=== PATIENT | female | born 1990 | race Caucasian/White ===

== ENCOUNTER 2018-11-19 16:14 | Inpatient (IN) | payer OTHER ==
[2018-11-19 19:46] VITALS: BMI 37.0
--- NOTE | 2018-11-19 20:46 | HP ---
CIWA Score - Admission Criteria [facility]ASAS Guidelines: Admission for Medically Managed Detox: Requires at least one of the followin. CIWA greater than 12 2. Seizures within the past 24 hours 3. Delirium tremens within the past 24 hours 4. Hallucinations within the past 24 hours 5. Acute intervention needed for co occurring medical disorder 6. Acute intervention needed for co occurring psychiatric disorder 7. Severe withdrawal that cannot be handled at a lower level of care (continued vomiting, continued diarrhea, abnormal vital signs) requiring intravenous medication and/or fluids 8. Admission ROS BHS - HPI Chief Complaint: Seeking admission to Rehab. Allergies/Adverse Reactions: Allergies Allergy/AdvReac Type Severity Reaction Status Date / Time No Known Allergies Allergy Verified 11/19/18 20:40 History of Present Illness: 28 years old female is seeking admission to Rehab. Patient was discharged from detox at [facility]. She has medical history of Hep C, hypothyroidism, fibromyalgia, anxiety and depression. She denies suicide attempt and suicidal ideation at this time. Patient reports that she is on Methadone 140mg tablet oral daily. Dose is yet to be confirmed by the nurse. Exam Limitations: No Limitations - Ebola screening Have you traveled outside of the country in the last 21 days: No Have you had contact with anyone from an Ebola affected area: No Have you been sick,other than usual withdrawal symptoms: No - Review of Systems Constitutional: No Symptoms Reported EENT: reports: No Symptoms Reported Respiratory: reports: No Symptoms reported Cardiac: reports: No Symptoms Reported GI: reports: No Symptoms Reported : reports: No Symptoms Reported Musculoskeletal: reports: No Symptoms Reported Integumentary: reports: No Symptoms Reported Neuro: reports: No Symptoms reported Endocrine: reports: No Symptoms Reported Hematology: reports: No Symptoms Reported Psychiatric: reports: No Sypmtoms Reported, Mood/Affect Appropiate, Orientated x3 Other Systems: Reviewed and Negative Patient History - Patient Medical History Hx Anemia: No Hx Asthma: No Hx Chronic Obstructive Pulmonary Disease (COPD): No Hx Cancer: No Hx Cardiac Disorders: No Hx Congestive Heart Failure: No Hx Hypertension: No Hx Hypercholesterolemia: No Hx Pacemaker: No HX Cerebrovascular Accident: No Hx Seizures: No Hx Dementia: No Hx Diabetes: No Hx Gastrointestinal Disorders: No Hx Liver Disease: Yes (Hep C) Hx Genitourinary Disorders: No Hx Sexually Transmitted Disorders: No Hx Renal Disease (ESRD): No Hx Thyroid Disease: Yes (Hypothyroidism) Hx Human Immunodeficiency Virus (HIV): No (Negative 2019) Hx Hepatitis C: Yes (Not treated) Hx Depression: Yes (Wellbutrim) Hx Suicide Attempt: No (Denies suicide attempt and suicidal ideation at this time) Hx Bipolar Disorder: No Hx Schizophrenia: No Other Medical History: Anxiety - Gabapentin - Patient Surgical History Past Surgical History: Yes Other Surgical History: Gall bladder removal 2014 - PPD History Previous Implant?: Yes Documented Results: Negative w/o proof Implanted On Prior R Admission?: No PPD to be Administered?: Yes - Reproductive History Patient is a Female of Child Bearing Age (11 -55 yrs old): Yes LMP comment: A YEAR AGO Patient : No - Smoking Cessation Smoking history: Current every day smoker Have you smoked in the past 12 months: Yes Aproximately how many cigarettes per day: 10 Hx Chewing Tobacco Use: No Initiated information on smoking cessation: Yes 'Breaking Loose' booklet given: 11/19/18 - Substance & Tx. History Hx Alcohol Use: No Hx Substance Use: Yes Substance Use Type: Opiates, Tranquilizers Hx Substance Use Treatment: Yes ([facility]) - Substances Abused Alprazolam (Xanax) Route: Oral Frequency: Daily Amount used: 10MG DAILY Age of first use: 13 Date of Last Use: 11/12/18 Family Disease History - Family Disease History Family History: Denies Admission Physical Exam S - Vital Signs Vital Signs: Vital Signs - 24 hr 11/19/18 19:38 Temperature 98.9 F Pulse Rate 97 H Respiratory 18 Rate Blood Pressure 116/72 - Physical General Appearance: Yes: Within Normal Limits HEENTM: Yes: Within Normal Limits, Normocephalic, Normal Voice, PAPO Respiratory: Yes: Lungs Clear, Normal Breath Sounds, No Respiratory Distress Neck: Yes: Supple Breast: Yes: Breast Exam Deferred Cardiology: Yes: Regular Rhythm, Regular Rate Abdominal: Yes: Normal Bowel Sounds Genitourinary: Yes: Within Normal Limits Back: Yes: Normal Inspection Musculoskeletal: Yes: Within Normal Limits Extremities: Yes: Within Normal Limits Neurological: Yes: claims technician II-XII NML intact, Alert, Normal Mood/Affect Integumentary: Yes: Warm Lymphatic: Yes: Within Normal Limits - Diagnostic (1) Benzodiazepine dependence Current Visit: Yes Status: Chronic (2) Methadone maintenance therapy patient Current Visit: Yes Status: Chronic (3) Hep C w/o coma, chronic Current Visit: Yes Status: Acute (4) Depression Current Visit: Yes Status: Chronic Qualifiers: Depression Type: unspecified Qualified Code(s): F32.9 - Major depressive disorder, single episode, unspecified (5) Anxiety Current Visit: Yes Status: Chronic (6) Hypothyroidism Current Visit: Yes Status: Chronic Qualifiers: Hypothyroidism type: subclinical iodine-deficiency Qualified Code(s): E02 - Subclinical iodine-deficiency hypothyroidism (7) Fibromyalgia Current Visit: Yes Status: Chronic Cleared for Admission [facility] - Detox or Rehab [facility] Level of Care: Observation Bed Claeared for Rehab Admission: Yes [facility] Breath Alcohol Content Breath Alcohol Content: 0 Urine Pregancy Test - Result Urine Test Results: Negative- NO Line Present Urine Drug Screen - Results Drug Screen Negative: No Urine Drug Screen Results: BZO-Benzodiazepines, MTD-Methadone Inpatient Rehab Admission - Rehab Decision to Admit Inpatient rehab admission?: Yes - Initial Determination Are CD services needed?: Yes Free of communicable disease: Yes Not in need of hospitalization: Yes - Rehab Admission Criteria Previous failed treatment: Yes Poor recovery environment: Yes Comorbidities: Yes Lacks judgement: No Patient is meeting Inpatient Rehab admission criteria:: Yes
[2018-11-19] MEDS ORDERED: MENTHOL/PHENOL 1 EACH UD MM PRN (20:59)
[2018-11-19] MEDS ORDERED: MAG HYDROX/AL HYDROX/SIMETH 30 ML UNIT-DOSE CUP PO PRN (20:59)
[2018-11-19] MEDS ORDERED: MAGNESIUM CITRATE 300 ML BOTTLE PO PRN (20:59)
[2018-11-19] MEDS ORDERED: P-EPHED 60MG/TRIPROLIDI 2.5MG TABLET PO PRN (20:59)
[2018-11-19] MEDS ORDERED: LOPERAMIDE HCL 2 MG CAPSULE PO PRN (20:59)
[2018-11-19] MEDS ORDERED: ACETAMINOPHEN 325 MG TABLET (FP) PO PRN (20:59)
[2018-11-19] MEDS ORDERED: guaiFENesin/D-METHORPHAN HB 10 ML UNIT-DOSE CUPS PO PRN (20:59)
[2018-11-20] MEDS: THIAMINE HCL 100 MG TABLET (FP) PO SCH ×2 (02:20→21:38)
[2018-11-20] MEDS ORDERED: NAPHAZOLINE/PHENIRAMINE OPHTHALMIC 15 ML BOTTLE OU PRN (06:37)
[2018-11-20] MEDS: LEVOTHYROXINE NA 100 MCG TABLET (FP) PO SCH (07:16)
[2018-11-20] MEDS ORDERED: METHADONE HCL 10 MG TABLET PO ONE (09:39)
[2018-11-20] MEDS ORDERED: METHADONE 120 MG, METHADONE 20 MG PO ONE (10:00)
[2018-11-20] MEDS: NICOTINE 14 MG/24 HOURS TOPICAL PATCH TD SCH (10:02)
[2018-11-20] MEDS: PRENATAL VITAMINS W/ FOLIC ACID TABLET (FP) PO SCH (10:02)
[2018-11-20] MEDS ORDERED: METHADONE HCL 10 MG TABLET ONE (10:43)
[2018-11-20] MEDS ORDERED: METHADONE HCL 40 MG DISPERSABLE TABLET ONE (10:43)
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
--- NOTE | 2018-11-20 18:13 | PN ---
[facility] Progress Note Note: Psychiatry Attending's on-call note : Called to enter orders for medications. Direct admission from the community. 28 y/o female with MDD and Anxiety Disorder. Requesting orders for : gabapentin 800 mg po qid remeron 30 mg po hs wellbutrin XL 300 mg am + 150 mg po hs (?) Chart reviewed. Dr Garces's consult note : appreciated. Met with the patient.History taken. Ms Bland was discharged on 11/19/18 from [facility]. Discharge summary seen. Home medications on discharge : lyrica 200 mg po bid wellbutrin XL 100 mg po q 12 hours synthroid 100 mcg po daily methadone 140 mg po daily Patient gave MD permission to contact [facility]. Done. Spoke to pharmacist at [phone] : no wellbutrin on file no remeron on file gabapentin 800 mg po qid is confirmed (10/25/18). lyrica was last refilled in June 2018. xanax 2 mg po bid (). zolpidem 5 mg po hs (10/25/18). Patient is irritable, hostile on approach. " I have already met with a psychiatrist ". Conversation is witnessed by referring nurse. Intervention : Remeron 15 mg po hs Unit psychiatrist will follow in AM.
[2018-11-20] MEDS: IBUPROFEN 400 MG TABLET (FP) PO PRN (21:39)
[2018-11-20] MEDS: MELATONIN 5 MG TABLETS PO PRN (21:40)
[2018-11-20 21:42] LABS: URINE APPEARANCE SLCLOUDY; URINE BILIRUBIN NEGATIVE (<2.0 mg/dL); URINE COLOR YELLOW; URINE GLUCOSE (UA) NEGATIVE (NEGATIVE); URINE KETONE NEGATIVE (NEGATIVE); URINE LEUK ESTERASE 1+ (NEGATIVE); URINE NITRITE NEGATIVE (NEGATIVE); URINE PROTEIN NEGATIVE (NEGATIVE); URINE UROBILINOGEN NEGATIVE mg/dL (0.2-1.0)
[2018-11-20 21:46] LABS: EPI CELLS RARE /HPF (FEW); URINE BACTERIA MANY /hpf (NONE SEEN); URINE MUCUS RARE
[2018-11-20] MEDS ORDERED: MIRTAZAPINE 15 MG TABLET (FP) PO SCH (22:00)
[2018-11-21] MEDS ORDERED: METHADONE HCL 40 MG DISPERSABLE TABLET ONE (04:10)
[2018-11-21] MEDS ORDERED: METHADONE HCL 10 MG TABLET ONE (04:10)
[2018-11-21] MEDS ORDERED: METHADONE HCL 40 MG DISPERSABLE TABLET PO SCH (06:00)
[2018-11-21] MEDS: METHADONE 120 MG, METHADONE 20 MG PO SCH (06:27)
[2018-11-21] MEDS: LEVOTHYROXINE NA 100 MCG TABLET (FP) PO SCH (06:27)
[2018-11-21] MEDS ORDERED: PT OWN MED DRAWER 7, Y5N ONE (08:55)
[2018-11-21] MEDS: NICOTINE 14 MG/24 HOURS TOPICAL PATCH TD SCH (09:53)
[2018-11-21] MEDS: PRENATAL VITAMINS W/ FOLIC ACID TABLET (FP) PO SCH (09:53)
[2018-11-21] MEDS: GABAPENTIN 400 MG CAPSULE (FP) PO SCH ×4 (09:53→21:19)
[2018-11-21] MEDS ORDERED: COLLOIDAL OATMEAL 1 BAR EACH TP PRN (11:55)
[2018-11-21] MEDS ORDERED: GABAPENTIN 400 MG CAPSULE (FP) PO SCH (14:00)
--- NOTE | 2018-11-21 14:01 | PN ---
[facility] Progress Note Note: PATIENT SEEN FOR C/O ANXIETY. CURRENTLY IN REHAB FOR BZO DEPENDENCE. PATIENT STATES SHE FEELS RESTLESS AND ANXIOUS DUE TO WITHDRAWAL FROM MEDICATION. REPORTS TAKING XANAX DAILY PRIOR TO ADMISSION. Vital Signs Temperature 97.3 F L 11/21/18 06:57 Pulse Rate 69 11/21/18 06:57 Respiratory Rate 18 11/21/18 06:57 Blood Pressure 116/58 L 11/21/18 06:57 O2 Sat by Pulse Oximetry (%) Laboratory Tests 11/20/18 17:05 Urine Color Yellow Urine Appearance Slcloudy Urine pH 6.0 Ur Specific [place] 1.016 Urine Protein Negative Urine Glucose (UA) Negative Urine Ketones Negative Urine Blood Negative Urine Nitrite Negative Urine Bilirubin Negative Urine Urobilinogen Negative Ur Leukocyte Esterase 1+ H Urine WBC (Auto) 4 Urine RBC (Auto) 3 Ur Epithelial Cells Rare Urine Bacteria Many Urine Mucus Rare PE: ALERT AND ORIENTED X 3 SKIN WARM AND DRY PUPILS DILATED 3MM, EOMS INTACT BL EXT FULL ROM, NO VISIBLE TREMORS ANXIOUS AND IRRITABLE. A/P: ANXIETY DUE TO BZO PROTRACTED WITHDRAWAL WILL ORDER CLONIDINE 0.1MG PO BID PRN FLEXERIL 10MG TID CONTINUE MEDICATIONS PER PSYCHIATRY MONITOR CLINICALLY
[2018-11-21] MEDS: SELENIUM SULFIDE 2.5% LOTION 4 OZ. TP SCH (14:10)
[2018-11-21] MEDS: CYCLOBENZAPRINE HCL 10 MG TABLET (FP) PO SCH ×2 (14:10→21:20)
[2018-11-21] MEDS: cloNIDine HCL 0.1 MG TABLET PO PRN ×2 (14:58→21:22)
[2018-11-21] MEDS: NICOTINE POLACRILEX 2 MG GUM BUC PRN ×2 (15:06→21:27)
[2018-11-21] MEDS: IBUPROFEN 400 MG TABLET (FP) PO PRN (17:14)
[2018-11-21] MEDS: THIAMINE HCL 100 MG TABLET (FP) PO SCH (21:19)
[2018-11-21] MEDS: MIRTAZAPINE 30 MG TABLET (FP) PO SCH (21:20)
[2018-11-22] MEDS ORDERED: METHADONE HCL 10 MG TABLET ONE (03:52)
[2018-11-22] MEDS ORDERED: METHADONE HCL 40 MG DISPERSABLE TABLET ONE (03:52)
[2018-11-22] MEDS: LEVOTHYROXINE NA 100 MCG TABLET (FP) PO SCH (06:26)
[2018-11-22] MEDS: METHADONE 120 MG, METHADONE 20 MG PO SCH (06:26)
[2018-11-22] MEDS: CYCLOBENZAPRINE HCL 10 MG TABLET (FP) PO SCH ×3 (06:26→21:13)
[2018-11-22] MEDS: NICOTINE 14 MG/24 HOURS TOPICAL PATCH TD SCH (10:56)
[2018-11-22] MEDS: GABAPENTIN 400 MG CAPSULE (FP) PO SCH ×4 (10:56→21:13)
[2018-11-22] MEDS: SELENIUM SULFIDE 2.5% LOTION 4 OZ. TP SCH (10:57)
[2018-11-22] MEDS: PRENATAL VITAMINS W/ FOLIC ACID TABLET (FP) PO SCH (10:57)
[2018-11-22] MEDS: cloNIDine HCL 0.1 MG TABLET PO PRN (11:00)
[2018-11-22 17:23] LABS: BASO % 0.3 % (0-2.0); EOS % 4.4 % (0-4.5); HEMATOCRIT 37.6 % (32.4-45.2); HEMOGLOBIN 12.7 GM/dL (10.7-15.3); MCH 28.9 pg (25.7-33.7); MCHC 33.8 g/dl (32.0-36.0); MEAN CELL VOLUME 85.6 fl (80-96); MEAN PLT VOLUME 9.6 fl (7.5-11.1); MONO % 5.5 % (3.8-10.2); NEUT % 54.8 % (42.8-82.8); PLATELET COUNT 197 K/MM3 (134-434); RBC 4.39 M/mm3 (3.60-5.2); RDW 14.3 % (11.6-15.6)
[2018-11-22 17:54] LABS: ALBUMIN 3.3 g/dl (3.4-5.0); ALK PHOS 148 U/L (45-117); ANION GAP 5 MMOL/L (8-16); BILIRUBIN,TOTAL 0.2 mg/dL (0.2-1); BLOOD UREA NITROGEN 11 mg/dL (7-18); CALCIUM 8.6 mg/dL (8.5-10.1); CHLORIDE 106 mmol/L (98-107); CO2 29 mmol/L (21-32); CREATININE 0.9 mg/dL (0.55-1.3); GLUCOSE,RANDOM 119 mg/dL (74-106); POTASSIUM 4.4 mmol/L (3.5-5.1); SGOT/AST 45 U/L (15-37); SGPT/ALT 75 U/L (13-61); SODIUM 139 mmol/L (136-145); TOT PROT 8.2 g/dl (6.4-8.2)
[2018-11-22] MEDS: MELATONIN 5 MG TABLETS PO PRN (21:13)
[2018-11-22] MEDS: THIAMINE HCL 100 MG TABLET (FP) PO SCH (21:13)
[2018-11-22] MEDS: MIRTAZAPINE 30 MG TABLET (FP) PO SCH (21:13)
[2018-11-23] MEDS ORDERED: METHADONE HCL 40 MG DISPERSABLE TABLET ONE (03:20)
[2018-11-23] MEDS ORDERED: METHADONE HCL 10 MG TABLET ONE (03:20)
[2018-11-23] MEDS: METHADONE 120 MG, METHADONE 20 MG PO SCH (06:54)
[2018-11-23] MEDS: CYCLOBENZAPRINE HCL 10 MG TABLET (FP) PO SCH ×3 (06:55→21:08)
[2018-11-23] MEDS: LEVOTHYROXINE NA 100 MCG TABLET (FP) PO SCH (06:55)
[2018-11-23] MEDS: MAGNESIUM HYDROX 2400MG/30ML ORAL SUSPENSION 30 ML CUP PO PRN (06:56)
[2018-11-23] MEDS: GABAPENTIN 400 MG CAPSULE (FP) PO SCH ×4 (10:08→21:07)
[2018-11-23] MEDS: PRENATAL VITAMINS W/ FOLIC ACID TABLET (FP) PO SCH (10:08)
[2018-11-23] MEDS: NICOTINE 14 MG/24 HOURS TOPICAL PATCH TD SCH (10:08)
[2018-11-23] MEDS: SELENIUM SULFIDE 2.5% LOTION 4 OZ. TP SCH (10:08)
[2018-11-23] MEDS: cloNIDine HCL 0.1 MG TABLET PO PRN (10:09)
[2018-11-23] MEDS: NICOTINE POLACRILEX 2 MG GUM BUC PRN (10:09)
[2018-11-23] MEDS: THIAMINE HCL 100 MG TABLET (FP) PO SCH (21:07)
[2018-11-23] MEDS: MIRTAZAPINE 30 MG TABLET (FP) PO SCH (21:07)
[2018-11-24] MEDS ORDERED: METHADONE HCL 40 MG DISPERSABLE TABLET ONE (04:50)
[2018-11-24] MEDS ORDERED: METHADONE HCL 10 MG TABLET ONE (04:50)
[2018-11-24] MEDS: METHADONE 120 MG, METHADONE 20 MG PO SCH (06:16)
[2018-11-24] MEDS: LEVOTHYROXINE NA 100 MCG TABLET (FP) PO SCH (06:16)
[2018-11-24] MEDS: CYCLOBENZAPRINE HCL 10 MG TABLET (FP) PO SCH ×3 (07:43→21:29)
[2018-11-24] MEDS: GABAPENTIN 400 MG CAPSULE (FP) PO SCH ×4 (10:35→21:29)
[2018-11-24] MEDS: PRENATAL VITAMINS W/ FOLIC ACID TABLET (FP) PO SCH (10:35)
[2018-11-24] MEDS: NICOTINE 14 MG/24 HOURS TOPICAL PATCH TD SCH (10:35)
[2018-11-24] MEDS: SELENIUM SULFIDE 2.5% LOTION 4 OZ. TP SCH (10:36)
[2018-11-24] MEDS: MELATONIN 5 MG TABLETS PO PRN (21:29)
[2018-11-24] MEDS: THIAMINE HCL 100 MG TABLET (FP) PO SCH (21:29)
[2018-11-24] MEDS: MIRTAZAPINE 30 MG TABLET (FP) PO SCH (21:29)
[2018-11-24] MEDS: cloNIDine HCL 0.1 MG TABLET PO PRN (21:29)
[2018-11-25] MEDS ORDERED: METHADONE HCL 10 MG TABLET ONE (04:13)
[2018-11-25] MEDS ORDERED: METHADONE HCL 40 MG DISPERSABLE TABLET ONE (04:14)
[2018-11-25] MEDS: LEVOTHYROXINE NA 100 MCG TABLET (FP) PO SCH (06:46)
[2018-11-25] MEDS: METHADONE 120 MG, METHADONE 20 MG PO SCH (06:46)
[2018-11-25] MEDS: CYCLOBENZAPRINE HCL 10 MG TABLET (FP) PO SCH ×3 (06:46→21:32)
[2018-11-25] MEDS: NICOTINE 14 MG/24 HOURS TOPICAL PATCH TD SCH (10:12)
[2018-11-25] MEDS: cloNIDine HCL 0.1 MG TABLET PO PRN ×2 (10:12→21:32)
[2018-11-25] MEDS: PRENATAL VITAMINS W/ FOLIC ACID TABLET (FP) PO SCH (10:12)
[2018-11-25] MEDS: GABAPENTIN 400 MG CAPSULE (FP) PO SCH ×4 (10:12→21:32)
[2018-11-25] MEDS: SELENIUM SULFIDE 2.5% LOTION 4 OZ. TP SCH (10:13)
[2018-11-25] MEDS: IBUPROFEN 400 MG TABLET (FP) PO PRN ×2 (10:14→21:34)
[2018-11-25] MEDS ORDERED: PT OWN MED DRAWER 7, Y5N ONE (10:14)
[2018-11-25] MEDS: NICOTINE POLACRILEX 2 MG GUM BUC PRN (10:15)
[2018-11-25] MEDS: MELATONIN 5 MG TABLETS PO PRN (21:32)
[2018-11-25] MEDS: MIRTAZAPINE 30 MG TABLET (FP) PO SCH (21:32)
[2018-11-25] MEDS: THIAMINE HCL 100 MG TABLET (FP) PO SCH (21:32)
[2018-11-26] MEDS ORDERED: METHADONE HCL 40 MG DISPERSABLE TABLET ONE (03:39)
[2018-11-26] MEDS ORDERED: METHADONE HCL 10 MG TABLET ONE (03:39)
[2018-11-26] MEDS: METHADONE 120 MG, METHADONE 20 MG PO SCH (06:18)
[2018-11-26] MEDS: CYCLOBENZAPRINE HCL 10 MG TABLET (FP) PO SCH ×3 (06:19→21:41)
[2018-11-26] MEDS: LEVOTHYROXINE NA 100 MCG TABLET (FP) PO SCH (06:19)
[2018-11-26] MEDS: NICOTINE 14 MG/24 HOURS TOPICAL PATCH TD SCH (10:43)
[2018-11-26] MEDS: PRENATAL VITAMINS W/ FOLIC ACID TABLET (FP) PO SCH (10:43)
[2018-11-26] MEDS: GABAPENTIN 400 MG CAPSULE (FP) PO SCH ×4 (10:43→21:41)
[2018-11-26] MEDS: NICOTINE POLACRILEX 2 MG GUM BUC PRN (10:44)
[2018-11-26] MEDS: SELENIUM SULFIDE 2.5% LOTION 4 OZ. TP SCH (10:57)
[2018-11-26] MEDS ORDERED: PT OWN MED DRAWER 7, Y5N ONE (12:43)
--- NOTE | 2018-11-26 19:49 | PN ---
[facility] Progress Note Note: Vital Signs Temperature 97.9 F 11/25/18 07:13 Pulse Rate 84 11/26/18 07:19 Respiratory Rate 18 11/26/18 07:19 Blood Pressure 94/59 L 11/26/18 07:19 O2 Sat by Pulse Oximetry (%) Report received from RN stating patient reported she to her that last night he had a seizure. Patient reports she is on prescribed xanax and does not want to discontinue her xanax and requested for xanax or klonopin to be prescribed. After speaking to the patient, she reports feeling dizzy during the day and feeling anxious. Patient denies suffering seizure aklst night but did expressed she has hx of benzo withdrawal seizures. Patient was evaluated by psych on an was started on gabapentin 800 mg TID. Others' Prescriptions Patient Name: Deepali Bland Date: 1990 Address: [address] [place] [address] Sex: Female Rx Written Rx Dispensed Drug Quantity Days Supply Prescriber Name 07/16/2018 07/16/2018 clonazepam 2 mg tablet 42 14 Beni Cohen 06/14/2018 06/14/2018 clonazepam 2 mg tablet 63 21 AlbertBeni baldwin 05/31/2018 06/03/2018 clonazepam 2 mg tablet 42 14 Beni Cohen 05/24/2018 05/24/2018 clonazepam 2 mg tablet 14 7 Beni Cohen 05/22/2018 05/22/2018 alprazolam 2 mg tablet 60 30 Rosie Pisano NP 05/22/2018 05/22/2018 zolpidem tartrate 5 mg tablet 30 30 Rosie Pisano NP Patient Name: Deepali Bland Date: 1990 Address: [address] [place] [address] Sex: Female Rx Written Rx Dispensed Drug Quantity Days Supply Prescriber Name 05/10/2018 06/04/2018 lyrica 200 mg capsule 60 30 Beni Cohen 05/24/2018 06/04/2018 clonazepam 2 mg tablet 16 8 Beni Cohen 05/10/2018 05/21/2018 zolpidem tartrate 5 mg tablet 15 15 Beni Cohen 05/10/2018 05/10/2018 alprazolam 2 mg tablet 28 14 Beni Cohen 03/23/2018 03/23/2018 clonazepam 2 mg tablet 14 7 Beni Cohen 03/23/2018 03/23/2018 zolpidem tartrate 5 mg tablet 7 7 Beni Cohen 03/05/2018 03/05/2018 lorazepam 1 mg tablet 18 6 Alyson Renee NP 03/05/2018 03/05/2018 methadone hcl 10 mg tablet 60 6 Alyson Renee MEDICAL ASST Patient is AOx3 no s/s acute distress + anxious EEENT WNL No advencious breath sounds full ROM ambulatory independent Patient started on antivert PRN increase PO fluids offered psych consult patient declined continue to monitor
[2018-11-26] MEDS: THIAMINE HCL 100 MG TABLET (FP) PO SCH (21:41)
[2018-11-26] MEDS: MELATONIN 5 MG TABLETS PO PRN (21:42)
[2018-11-26] MEDS: MIRTAZAPINE 30 MG TABLET (FP) PO SCH (21:42)
[2018-11-26] MEDS: cloNIDine HCL 0.1 MG TABLET PO PRN (21:43)
[2018-11-26] MEDS: MAGNESIUM HYDROX 2400MG/30ML ORAL SUSPENSION 30 ML CUP PO PRN (21:48)
[2018-11-27] MEDS ORDERED: METHADONE HCL 40 MG DISPERSABLE TABLET ONE (04:14)
[2018-11-27] MEDS ORDERED: METHADONE HCL 10 MG TABLET ONE (04:14)
[2018-11-27] MEDS: CYCLOBENZAPRINE HCL 10 MG TABLET (FP) PO SCH ×3 (06:06→21:23)
[2018-11-27] MEDS: LEVOTHYROXINE NA 100 MCG TABLET (FP) PO SCH (06:06)
[2018-11-27] MEDS: METHADONE 120 MG, METHADONE 20 MG PO SCH (06:06)
[2018-11-27] MEDS: PRENATAL VITAMINS W/ FOLIC ACID TABLET (FP) PO SCH (09:59)
[2018-11-27] MEDS: GABAPENTIN 400 MG CAPSULE (FP) PO SCH ×4 (09:59→21:23)
[2018-11-27] MEDS: cloNIDine HCL 0.1 MG TABLET PO PRN (09:59)
[2018-11-27] MEDS: NICOTINE 14 MG/24 HOURS TOPICAL PATCH TD SCH (10:00)
[2018-11-27] MEDS: SELENIUM SULFIDE 2.5% LOTION 4 OZ. TP SCH (10:00)
[2018-11-27] MEDS: NICOTINE POLACRILEX 2 MG GUM BUC PRN ×3 (10:00→21:24)
[2018-11-27] MEDS: MAGNESIUM HYDROX 2400MG/30ML ORAL SUSPENSION 30 ML CUP PO PRN (14:00)
[2018-11-27] MEDS: THIAMINE HCL 100 MG TABLET (FP) PO SCH (21:22)
[2018-11-27] MEDS: MIRTAZAPINE 30 MG TABLET (FP) PO SCH (21:22)
[2018-11-27] MEDS: MELATONIN 5 MG TABLETS PO PRN (21:23)
[2018-11-28] MEDS ORDERED: METHADONE HCL 40 MG DISPERSABLE TABLET ONE (05:10)
[2018-11-28] MEDS ORDERED: METHADONE HCL 10 MG TABLET ONE (05:10)
[2018-11-28] MEDS: METHADONE 120 MG, METHADONE 20 MG PO SCH (06:27)
[2018-11-28] MEDS: CYCLOBENZAPRINE HCL 10 MG TABLET (FP) PO SCH ×3 (06:28→21:22)
[2018-11-28] MEDS: LEVOTHYROXINE NA 100 MCG TABLET (FP) PO SCH (06:28)
[2018-11-28] MEDS: NICOTINE POLACRILEX 2 MG GUM BUC PRN ×2 (06:33→21:24)
[2018-11-28] MEDS: NICOTINE 14 MG/24 HOURS TOPICAL PATCH TD SCH (10:46)
[2018-11-28] MEDS: GABAPENTIN 400 MG CAPSULE (FP) PO SCH ×4 (10:47→21:22)
[2018-11-28] MEDS: PRENATAL VITAMINS W/ FOLIC ACID TABLET (FP) PO SCH (10:47)
[2018-11-28] MEDS: SELENIUM SULFIDE 2.5% LOTION 4 OZ. TP SCH (10:49)
[2018-11-28] MEDS: THIAMINE HCL 100 MG TABLET (FP) PO SCH (21:22)
[2018-11-28] MEDS: MIRTAZAPINE 30 MG TABLET (FP) PO SCH (21:22)
[2018-11-28] MEDS: MELATONIN 5 MG TABLETS PO PRN (21:22)
[2018-11-28] MEDS: cloNIDine HCL 0.1 MG TABLET PO PRN (21:23)
[2018-11-29] MEDS ORDERED: METHADONE HCL 10 MG TABLET ONE (05:15)
[2018-11-29] MEDS ORDERED: METHADONE HCL 40 MG DISPERSABLE TABLET ONE (05:15)
[2018-11-29] MEDS: LEVOTHYROXINE NA 100 MCG TABLET (FP) PO SCH (06:10)
[2018-11-29] MEDS: CYCLOBENZAPRINE HCL 10 MG TABLET (FP) PO SCH ×3 (06:10→21:07)
[2018-11-29] MEDS: METHADONE 120 MG, METHADONE 20 MG PO SCH (06:11)
[2018-11-29] MEDS: NICOTINE 14 MG/24 HOURS TOPICAL PATCH TD SCH (10:34)
[2018-11-29] MEDS: GABAPENTIN 400 MG CAPSULE (FP) PO SCH ×4 (10:34→21:07)
[2018-11-29] MEDS: PRENATAL VITAMINS W/ FOLIC ACID TABLET (FP) PO SCH (10:34)
[2018-11-29] MEDS: NICOTINE POLACRILEX 2 MG GUM BUC PRN ×4 (10:36→21:07)
[2018-11-29] MEDS: cloNIDine HCL 0.1 MG TABLET PO PRN ×2 (14:24→21:07)
[2018-11-29] MEDS: MECLIZINE HCL 12.5 MG TABLET PO PRN (16:05)
[2018-11-29] MEDS: MIRTAZAPINE 30 MG TABLET (FP) PO SCH (21:07)
[2018-11-29] MEDS: MELATONIN 5 MG TABLETS PO PRN (21:07)
[2018-11-29] MEDS: THIAMINE HCL 100 MG TABLET (FP) PO SCH (21:07)
[2018-11-30] MEDS ORDERED: METHADONE HCL 10 MG TABLET ONE (04:41)
[2018-11-30] MEDS ORDERED: METHADONE HCL 40 MG DISPERSABLE TABLET ONE (04:41)
[2018-11-30] MEDS: CYCLOBENZAPRINE HCL 10 MG TABLET (FP) PO SCH ×3 (06:14→23:31)
[2018-11-30] MEDS: METHADONE 120 MG, METHADONE 20 MG PO SCH (06:14)
[2018-11-30] MEDS: LEVOTHYROXINE NA 100 MCG TABLET (FP) PO SCH (06:14)
[2018-11-30] MEDS: NICOTINE POLACRILEX 2 MG GUM BUC PRN ×3 (06:14→14:23)
[2018-11-30] MEDS: GABAPENTIN 400 MG CAPSULE (FP) PO SCH ×4 (10:33→23:31)
[2018-11-30] MEDS: NICOTINE 14 MG/24 HOURS TOPICAL PATCH TD SCH (10:33)
[2018-11-30] MEDS: PRENATAL VITAMINS W/ FOLIC ACID TABLET (FP) PO SCH (10:33)
[2018-11-30] MEDS: IBUPROFEN 400 MG TABLET (FP) PO PRN (10:34)
[2018-11-30] MEDS: MIRTAZAPINE 30 MG TABLET (FP) PO SCH (23:31)
[2018-11-30] MEDS: THIAMINE HCL 100 MG TABLET (FP) PO SCH (23:31)
[2018-11-30] MEDS: MELATONIN 5 MG TABLETS PO PRN (23:31)
[2018-12-01] MEDS ORDERED: METHADONE HCL 10 MG TABLET ONE (05:15)
[2018-12-01] MEDS ORDERED: METHADONE HCL 40 MG DISPERSABLE TABLET ONE (05:15)
[2018-12-01] MEDS: CYCLOBENZAPRINE HCL 10 MG TABLET (FP) PO SCH ×3 (06:00→21:26)
[2018-12-01] MEDS: METHADONE 120 MG, METHADONE 20 MG PO SCH (06:01)
[2018-12-01] MEDS: LEVOTHYROXINE NA 100 MCG TABLET (FP) PO SCH (07:09)
[2018-12-01] MEDS: NICOTINE 14 MG/24 HOURS TOPICAL PATCH TD SCH (09:19)
[2018-12-01] MEDS: GABAPENTIN 400 MG CAPSULE (FP) PO SCH ×4 (09:19→21:26)
[2018-12-01] MEDS: PRENATAL VITAMINS W/ FOLIC ACID TABLET (FP) PO SCH (09:20)
[2018-12-01] MEDS: IBUPROFEN 400 MG TABLET (FP) PO PRN (09:22)
[2018-12-01] MEDS: NICOTINE POLACRILEX 2 MG GUM BUC PRN (09:22)
[2018-12-01] MEDS: MIRTAZAPINE 30 MG TABLET (FP) PO SCH (21:26)
[2018-12-01] MEDS: THIAMINE HCL 100 MG TABLET (FP) PO SCH (21:26)
[2018-12-01] MEDS: cloNIDine HCL 0.1 MG TABLET PO PRN (21:27)
[2018-12-01] MEDS: MELATONIN 5 MG TABLETS PO PRN (21:27)
[2018-12-02] MEDS ORDERED: METHADONE HCL 10 MG TABLET ONE (03:13)
[2018-12-02] MEDS ORDERED: METHADONE HCL 40 MG DISPERSABLE TABLET ONE (03:14)
[2018-12-02] MEDS: CYCLOBENZAPRINE HCL 10 MG TABLET (FP) PO SCH ×3 (06:26→21:23)
[2018-12-02] MEDS: METHADONE 120 MG, METHADONE 20 MG PO SCH (06:26)
[2018-12-02] MEDS: LEVOTHYROXINE NA 100 MCG TABLET (FP) PO SCH (06:26)
[2018-12-02] MEDS: GABAPENTIN 400 MG CAPSULE (FP) PO SCH ×4 (09:36→21:22)
[2018-12-02] MEDS: cloNIDine HCL 0.1 MG TABLET PO PRN ×2 (09:36→21:23)
[2018-12-02] MEDS: PRENATAL VITAMINS W/ FOLIC ACID TABLET (FP) PO SCH (09:36)
[2018-12-02] MEDS: NICOTINE 14 MG/24 HOURS TOPICAL PATCH TD SCH (09:36)
[2018-12-02] MEDS: NICOTINE POLACRILEX 2 MG GUM BUC PRN ×2 (09:39→16:28)
[2018-12-02] MEDS: MAGNESIUM HYDROX 2400MG/30ML ORAL SUSPENSION 30 ML CUP PO PRN (09:39)
[2018-12-02] MEDS: THIAMINE HCL 100 MG TABLET (FP) PO SCH (21:22)
[2018-12-02] MEDS: MELATONIN 5 MG TABLETS PO PRN (21:22)
[2018-12-02] MEDS: MIRTAZAPINE 30 MG TABLET (FP) PO SCH (21:23)
[2018-12-03] MEDS ORDERED: METHADONE HCL 40 MG DISPERSABLE TABLET ONE (04:01)
[2018-12-03] MEDS ORDERED: METHADONE HCL 10 MG TABLET ONE (04:01)
[2018-12-03] MEDS: LEVOTHYROXINE NA 100 MCG TABLET (FP) PO SCH (06:02)
[2018-12-03] MEDS: CYCLOBENZAPRINE HCL 10 MG TABLET (FP) PO SCH ×3 (06:02→21:14)
[2018-12-03] MEDS: METHADONE 120 MG, METHADONE 20 MG PO SCH (06:02)
[2018-12-03] MEDS: PRENATAL VITAMINS W/ FOLIC ACID TABLET (FP) PO SCH (10:11)
[2018-12-03] MEDS: NICOTINE 14 MG/24 HOURS TOPICAL PATCH TD SCH (10:11)
[2018-12-03] MEDS: GABAPENTIN 400 MG CAPSULE (FP) PO SCH ×4 (10:11→21:14)
[2018-12-03] MEDS: MAGNESIUM HYDROX 2400MG/30ML ORAL SUSPENSION 30 ML CUP PO PRN (10:14)
[2018-12-03] MEDS: NICOTINE POLACRILEX 2 MG GUM BUC PRN ×2 (10:15→21:15)
[2018-12-03] MEDS: MECLIZINE HCL 12.5 MG TABLET PO PRN (17:57)
[2018-12-03] MEDS: MELATONIN 5 MG TABLETS PO PRN (21:14)
[2018-12-03] MEDS: cloNIDine HCL 0.1 MG TABLET PO PRN (21:14)
[2018-12-03] MEDS: THIAMINE HCL 100 MG TABLET (FP) PO SCH (21:14)
[2018-12-03] MEDS: MIRTAZAPINE 30 MG TABLET (FP) PO SCH (21:17)
[2018-12-04] MEDS ORDERED: METHADONE HCL 40 MG DISPERSABLE TABLET ONE (04:18)
[2018-12-04] MEDS ORDERED: METHADONE HCL 10 MG TABLET ONE (04:18)
[2018-12-04] MEDS: CYCLOBENZAPRINE HCL 10 MG TABLET (FP) PO SCH (05:55)
[2018-12-04] MEDS ORDERED: METHADONE 120 MG, METHADONE 20 MG PO SCH (06:00)
[2018-12-04 06:42] VITALS: BP 117/64; PULSE 78; TEMP 97.9
[2018-12-04] MEDS: LEVOTHYROXINE NA 100 MCG TABLET (FP) PO SCH (07:03)
--- NOTE | 2018-12-04 07:54 | PN ---
[facility] Progress Note Note: Patient is discharged today. Scripts for 30 days supply of medications( Wellbutrin XL, Gabapentin, Remeron) are electronically transmitted to [address] [place] [address], [place] [address]
[2018-12-04] MEDS: PRENATAL VITAMINS W/ FOLIC ACID TABLET (FP) PO SCH (09:26)
[2018-12-04] MEDS: GABAPENTIN 400 MG CAPSULE (FP) PO SCH (09:26)
[2018-12-04] MEDS: NICOTINE 14 MG/24 HOURS TOPICAL PATCH TD SCH (09:26)
[2018-12-04] MEDS: NICOTINE POLACRILEX 2 MG GUM BUC PRN (09:28)
[2018-12-04] MEDS ORDERED: PT OWN MED DRAWER 7, Y5N ONE (09:28)
== END 2018-12-04 09:35 | disposition home or self-care (01) | DRG 772 ==
LOC: YASAS 16:14 → Y3W 22:36
PROVIDERS: ADMIT Neuromusculoskeletal Medicine & OMM; ATTEND Neuromusculoskeletal Medicine & OMM
PROC: HZ42ZZZ Group Counseling for Substance Abuse Treatment, Cognitive-Behavioral (ICD-10-PCS; principal; 2018-11-19)
DX: F13.20 Sedative, hypnotic or anxiolytic dependence, uncomplicated (principal); F11.20 Opioid dependence, uncomplicated; F33.9 Major depressive disorder, recurrent, unspecified; F19.280 Other psychoactive substance dependence with psychoactive substance-induced anxiety disorder; F19.282 Other psychoactive substance dependence with psychoactive substance-induced sleep disorder; F17.210 Nicotine dependence, cigarettes, uncomplicated; E03.9 Hypothyroidism, unspecified; M79.7 Fibromyalgia; B18.2 Chronic viral hepatitis C; Z91.5 Personal history of self-harm
CPT/HCPCS: 36415; 80053; 81003; 81015; 84436; 84443; 84480; 85025; 86593; J0735

== ENCOUNTER 2019-03-04 15:05 | Inpatient (IN) | payer OTHER | END 2019-03-07 10:55 | disposition other institution (70) | LOC: YASAS 15:05 → Y3N 21:05 ==